=== PATIENT | male | born 1985 | race Hispanic/Latino ===

== ENCOUNTER 2020-07-06 12:44 | Emergency (ER) | payer OTHER ==
--- NOTE | 2020-07-06 17:31 | ER ---
Nurse's Notes [facility] Name: Milton Mcmanus Jr Age: 35 yrs Sex: Male : 1985 Arrival Date: 07/06/2020 Time: 12:49 Bed 23 Private MD: Diagnosis: Cough Presentation: 07/06 14:48 Chief complaint: Chief complaint: Patient states: cough x 2 - 3 days. Chest congestion. ca1 Denies fever. 14:48 Method Of Arrival: Ambulatory ca1 14:57 Coronavirus screen: Client denies travel out of the [place] in the last 14 days. ca1 congestion, cough unrelated to allergies, runny nose, Client presents with at least one sign or symptom that may indicate coronavirus-19. Standard/surgical mask placed on the client. Provider contacted for isolation considerations. Ebola Screen: Patient negative for fever greater than or equal to 101.5 degrees Fahrenheit, and additional compatible Ebola Virus Disease symptoms Patient denies exposure to infectious person. Patient denies travel to an Ebola-affected area in the 21 days before illness onset. No symptoms or risks identified at this time. Initial Sepsis Screen: Does the patient meet any 2 criteria? No. Patient's initial sepsis screen is negative. Does the patient have a suspected source of infection? No. Patient's initial sepsis screen is negative. Risk Assessment: Do you want to hurt yourself or someone else? Patient reports no desire to harm self or others. Onset of symptoms was July 06, 2020. 14:57 Acuity: TANYA 4 ca1 Historical: - Allergies: 15:00 No Known Allergies; ca1 - Home Meds: 15:00 Ana 180 mg Oral tab 1 tab once daily [Active]; ca1 - PMHx: 15:00 allergies; ca1 - PSHx: 15:00 None; ca1 - Immunization history:: Adult Immunizations up to date, Flu vaccine is not up to date. - Social history:: Smoking status: Patient denies any tobacco usage or history of. Screenin:17 Abuse screen: Denies threats or abuse. Denies injuries from another. Nutritional ca1 screening: No deficits noted. Tuberculosis screening: No symptoms or risk factors identified. Fall Risk None identified. Assessment: 17:16 General: Appears in no apparent distress. comfortable, Behavior is calm, cooperative, ca1 appropriate for age. Pain: Denies pain. Neuro: Level of Consciousness is awake, alert, obeys commands, Oriented to person, place, time, situation. Respiratory: Reports cough that is Airway is patent Respiratory effort is even, unlabored, Respiratory pattern is regular, symmetrical, Breath sounds are clear bilaterally. Derm: Skin is intact, is healthy with good turgor, Skin is pink, warm \T\ dry. Musculoskeletal: Circulation, motion, and sensation intact. Capillary refill < 3 seconds. Vital Signs: 14:57 BP 130 / 72; Pulse 86; Resp 18 S; Temp 98.7(TE); Pulse Ox 99% on R/A; Weight 63.5 kg ca1 (R); Height 5 ft. 7 in. (170.18 cm) (R); Pain 0/10; 17:27 BP 127 / 76; Pulse 84; Resp 17; Temp 98.0; Pulse Ox 97% on R/A; mh5 14:57 Body Mass Index 21.93 (63.50 kg, 170.18 cm) ca1 ED Course: 12:49 Patient arrived in ED. ag5 14:59 Triage completed. ca1 15:00 Arm band placed on right wrist. ca1 15:30 Flu Sent. ca1 15:30 COVID-19 Sent. ca1 16:26 Flu Sent. ca1 17:16 Shaye Chakraborty, ADRIANA is Primary Nurse. ca1 17:16 Walt Henderson PA is PHCP. [facility] 17:16 Santo Baez MD is Attending Physician. [facility] 17:17 Patient has correct armband on for positive identification. Bed in low position. Call ca1 light in reach. Side rails up X 1. Pulse ox on. NIBP on. Warm blanket given. 17:31 No provider procedures requiring assistance completed. Patient did not have IV access iw during this emergency room visit. Administered Medications: No medications were administered Outcome: 17:31 Discharge ordered by . alma rosa 17:35 Discharged to home ambulatory, with family. ca1 17:35 Condition: stable 17:35 Discharge instructions given to patient, Instructed on discharge instructions, follow up and referral plans. medication usage, Demonstrated understanding of instructions, follow-up care, medications, Prescriptions given X 2. 17:35 Patient left the ED. ca1 Addendum: 07/09/2020 09:57 Addendum: COVID-19 Result: Negative result given to RN to notify pt. Notified pt of d m5 negative COVID 19 swab results. Pt advised that even with a negative test result they should remain in isolation until symptom free for 3 days without medication. Pt also advised to return to the ED for worsening symptoms. Signatures: Nicki Tobin, RN RN dm5 Walt Henderson PA PA jmm Williams, Irene, RN RN iw Shahla Siegel 5 Shaye Chakraborty RN RN ca1 Tamika Martinez 5 Corrections: (The following items were deleted from the chart) 07/06 14:59 14:48 Chief complaint: ca1 ca1
--- NOTE | 2020-07-06 17:31 | EDPHYS ---
Physician Documentation [facility] Name: Milton Mcmanus Jr Age: 35 yrs Sex: Male : 1985 Arrival Date: 07/06/2020 Time: 12:49 Bed 23 Private MD: ED Physician Santo Baez HPI: 07/06 17:26 This 35 yrs old Male presents to ER via Ambulatory with complaints of Cough. jmm 17:26 The patient or guardian reports cough. Onset: The symptoms/episode began/occurred jmm gradually, 3 day(s) ago. Modifying factors: The symptoms are alleviated by nothing, the symptoms are aggravated by nothing. This is a 35 year old male with no chronic medical conditions that presents to the ED with complaints of cough, denies fever. Symptoms have been ongoing for the past 3 days. Denies known exposure to covid 19. . Historical: - Allergies: 15:00 No Known Allergies; ca1 - Home Meds: 15:00 Ana 180 mg Oral tab 1 tab once daily [Active]; ca1 - PMHx: 15:00 allergies; ca1 - PSHx: 15:00 None; ca1 - Immunization history:: Adult Immunizations up to date, Flu vaccine is not up to date. - Social history:: Smoking status: Patient denies any tobacco usage or history of. ROS: 17:26 Constitutional: Negative for fever, chills, and weight loss, Cardiovascular: Negative jmm for chest pain, palpitations, and edema. 17:26 Respiratory: Positive for cough. 17:26 All other systems are negative. Exam: 17:26 Constitutional: This is a well developed, well nourished patient who is awake, alert, jmm and in no acute distress. Head/Face: atraumatic. Eyes: EOMI, no conjunctival erythema appreciated ENT: Moist Mucus Membranes Neck: Trachea midline, Supple Chest/axilla: Normal chest wall appearance and motion. Cardiovascular: Regular rate and rhythm. No edema appreciated Respiratory: Normal respirations, no respiratory distress appreciated Abdomen/GI: Non distended, soft Back: Normal ROM Skin: General appearance color normal MS/ Extremity: Moves all extremities, no obvious deformities appreciated, no edema noted to the lower extremities Neuro: Awake and alert, normal gait Psych: Behavior is normal, Mood is normal, Patient is cooperative and pleasant Vital Signs: 14:57 BP 130 / 72; Pulse 86; Resp 18 S; Temp 98.7(TE); Pulse Ox 99% on R/A; Weight 63.5 kg ca1 (R); Height 5 ft. 7 in. (170.18 cm) (R); Pain 0/10; 17:27 BP 127 / 76; Pulse 84; Resp 17; Temp 98.0; Pulse Ox 97% on R/A; mh5 14:57 Body Mass Index 21.93 (63.50 kg, 170.18 cm) ca1 MDM: 17:20 Patient medically screened. stephanie 17:26 Data reviewed: vital signs, nurses notes. Counseling: I had a detailed discussion with alma rosa the patient and/or guardian regarding: the historical points, exam findings, and any diagnostic results supporting the discharge/admit diagnosis, lab results, the need for outpatient follow up, to return to the emergency department if symptoms worsen or persist or if there are any questions or concerns that arise at home. ED course: Patient is alert and non toxic in appearance in the ED. No signs of resp distress. patient advised to follow up with pcp and otherwise given strict return precautions. Patient understood and agrees with the plan of care. . 07/06 15:01 Order name: Flu; Complete Time: 17:23 ca1 07/06 15:01 Order name: COVID-19 ca1 Administered Medications: No medications were administered Disposition: 18:06 Co-signature as Attending Physician, Santo Baez MD. rn Disposition: 07/06/20 17:31 Discharged to Home. Impression: Cough. - Condition is Stable. - Discharge Instructions: Cough, Adult, [id number]. - Prescriptions for Prednisone 20 mg Oral Tablet - take 3 tablet by ORAL route once daily for 5 days; 15 tablet. Albuterol Sulfate 90 mcg/actuation - inhale 1-2 puff by INHALATION route every 4-6 hours; 1 Inhaler. - Medication Reconciliation Form, Thank You Letter, Antibiotic Education, Prescription Opioid Use form. - Follow up: Private Physician; When: 2 - 3 days; Reason: Recheck today's complaints, Continuance of care, Re-evaluation by your physician. Signatures: Dispatcher [employer] EDMS Walt Henderson PA PA Santo Wray MD MD rn Acob, Hsaye, RN RN ca1 Corrections: (The following items were deleted from the chart) 17:35 17:31 07/06/2020 17:31 Discharged to Home. Impression: Cough. Condition is Stable. ca1 Forms are Medication Reconciliation Form, Thank You Letter, Antibiotic Education, Prescription Opioid Use. Follow up: Private Physician; When: 2 - 3 days; Reason: Recheck today's complaints, Continuance of care, Re-evaluation by your physician. alma rosa
[2020-07-06 17:42] VITALS: BP 127/76; TEMP 98; O2SAT 97
== END 2020-07-06 17:35 | disposition home or self-care (01) ==
LOC: ER 12:44
DX: R05 Cough (principal); Z20.828 Contact with and (suspected) exposure to other viral communicable diseases
CPT/HCPCS: 87804 ×2; 99283; U0002